=== PATIENT | female | born 1970 | race Caucasian/White ===

== ENCOUNTER 2017-02-06 23:31 | Inpatient (IN) | payer MEDICAID ==
[~2017-02-06] VITALS: Ht 154.9 cm; Wt 117.5 kg
[2017-02-06 23:35] VITALS: BP 181/124
[2017-02-07] MEDS ORDERED: methylPREDNISolone SS 125 MG in WATER STERILE 2 ML IM ONE ×2
--- NOTE | 2017-02-07 | NUR ---
Patient transferred to bed 4 for further care. RN evaluating patient at bedside.
--- NOTE | 2017-02-07 00:05 | NUR ---
Breathing treatment administered by respiratory therapist at bedside.
[2017-02-07] MEDS ORDERED: ALBUTEROL SULFATE/IPRATROPIU 3 ML SOL IH ONE ×2 (00:08)
[2017-02-07] MEDS ORDERED: MAG SULF 2000 MG/WATER PREMIX 50 ML IV ONE (00:20)
[2017-02-07] MEDS ORDERED: NACL 0.9% 1,000 ML IV ONE (00:20)
[2017-02-07 00:41] LABS: BASOPHILS # (AUTO) 0.3 K/uL (0.00-0.22); BASOPHILS % (AUTO) 2.9 % (0.0-2.0); EOSINOPHILS # (AUTO) 0.4 K/uL (0-0.4); EOSINOPHILS % (AUTO) 3.7 % (0.0-4.0); HEMOGLOBIN 12.9 g/dL (12.0-16.0); LYMPHOCYTES # (AUTO) 3.4 K/uL (2.5-16.5); LYMPHOCYTES % (AUTO) 33.7 % (20.5-51.1); MEAN CORPUSCULAR HEMOGLOBIN 27 pg (27-31); MEAN CORPUSCULAR HGB CONC 32 g/dL (33-37); MEAN CORPUSCULAR VOLUME 84 fL (80-94); MONOCYTES # (AUTO) 0.7 K/uL (0.8-1.0); MONOCYTES % (AUTO) 6.5 % (1.7-9.3); NEUTROPHILS # (AUTO) 5.3 K/uL (1.8-7.7); NEUTROPHILS % (AUTO) 53.2 % (42.2-75.2); PLATELET COUNT (AUTO) 238 K/uL (140-450); RED BLOOD CELL COUNT(AUTO) 4.78 MIL/uL (4.20-5.40); RED CELL DISTRIBUTION WIDTH 14.6 % (11.6-13.7); WHITE BLOOD COUNT (AUTO) 10.1 K/uL (4.8-10.8)
[2017-02-07 00:51] LABS: CARBON DIOXIDE 29.2 mmol/L (21-32); CREATININE 0.9 mg/dL (0.6-1.3); POTASSIUM 3.2 mmol/L (3.5-5.1)
--- NOTE | 2017-02-07 00:51 | NUR ---
47/F c/o difficulty breathing x2 weeks. Pt has hx of asthma and ran out of medications. Pt noted with wheezing and diminished breath sounds. Pt also c/o congestion and cough for the past two weeks as well. AOX4, placed in a gown, placed on cardiac exercise physiologist, pulse oximetry and blood pressure monitoring.
--- NOTE | 2017-02-07 01:54 | NUR ---
RT at bedside for ABG draw.
--- NOTE | 2017-02-07 02:16 | NUR ---
Patient will be admitted to care of Dr. Holguin. Admited to TELE. Will go to room 119-A. Belongings list completed. Report to Meri TIPTON.
--- NOTE | 2017-02-07 02:30 | NUR ---
RECEIVED REPORT FROM LUBA STANTON NURSE . PT TO BE ON TELE MONITOR.
[2017-02-07 02:50] VITALS: BP 150/87
--- NOTE | 2017-02-07 02:50 | NUR ---
ADMITTED A 47F FROM ER. CAME BY OTF . ABLE AMBULATE FROM [facility] TO BED. AWAKE,ALERT AND ORIENTED X4. ON TELE MONITOR-SR. CAME DUE TO SOB SECONDARY TO ASTHMA EXACERBATION. THIS TIME PT NO SOB NOTED. BUT WITH OCCASIONAL PRODUCTIVE COUGH . SKIN INTACT. DENIES AND PAIN . ORIENTED TO HOSPITAL ROUTINES. CALL LIGHT PLACED WITHIN EASY REACH. HAS HL ON THE RT AC#20. PLACED COMFORTABLY IN BED. WILL CONTINUE TO MONITOR.
[2017-02-07] MEDS ORDERED: POTASSIUM CHLORIDE 10 MEQ TABER PO ONE (03:50)
[2017-02-07] MEDS: NACL 0.9% 500 ML IV SCH ×2 (04:18→08:42)
--- NOTE | 2017-02-07 04:20 | NUR ---
K LEVEL - 3.2, MEDICATED WITH K DUR 40 MEQ PO.
--- NOTE | 2017-02-07 04:30 | NUR ---
CHECKED IN ON PT. PT RESTING COMFORTABLY IN BED WITH NO S/S OF DISTRESS NOTED. ALL SAFETY PRECAUTIONS MET, CALL LIGHT WITHIN REACH, WILL CONTINUE TO MONITOR.
--- NOTE | 2017-02-07 04:30 | NUR ---
SLEEPING COMFORTABLY IN BED.
[2017-02-07 04:45] VITALS: BP 148/79
[2017-02-07 05:57] LABS: BASOPHILS # (AUTO) 0.1 K/uL (0.00-0.22); BASOPHILS % (AUTO) 1.5 % (0.0-2.0); EOSINOPHILS # (AUTO) 0.1 K/uL (0-0.4); HEMATOCRIT 38.4 % (36-48); HEMOGLOBIN 12.4 g/dL (12.0-16.0); LYMPHOCYTES # (AUTO) 0.7 K/uL (2.5-16.5); LYMPHOCYTES % (AUTO) 7.4 % (20.5-51.1); MEAN CORPUSCULAR HEMOGLOBIN 27 pg (27-31); MEAN CORPUSCULAR HGB CONC 32 g/dL (33-37); MEAN CORPUSCULAR VOLUME 84 fL (80-94); MONOCYTES # (AUTO) 0.2 K/uL (0.8-1.0); MONOCYTES % (AUTO) 2.3 % (1.7-9.3); NEUTROPHILS # (AUTO) 8.5 K/uL (1.8-7.7); NEUTROPHILS % (AUTO) 87.8 % (42.2-75.2); PLATELET COUNT (AUTO) 238 K/uL (140-450); RED BLOOD CELL COUNT(AUTO) 4.59 MIL/uL (4.20-5.40); RED CELL DISTRIBUTION WIDTH 14.4 % (11.6-13.7); WHITE BLOOD COUNT (AUTO) 9.6 K/uL (4.8-10.8)
[2017-02-07 06:45] LABS: ANION GAP 16.2 (8-16); CARBON DIOXIDE 23.4 mmol/L (21-32); POTASSIUM 3.6 mmol/L (3.5-5.1)
[2017-02-07 06:52] LABS: MAGNESIUM 2.1 mg/dL (1.8-2.4); PHOSPHORUS 2.4 mg/dL (2.5-4.9)
--- NOTE | 2017-02-07 07:20 | NUR ---
RECEIVED REPORT FROM NIGHT RN AT PT BEDSIDE. PT AMBULATORY TO BATHROOM, NO S/S OF ACUTE DISTRESS NOTED. ON ROOM AIR NO S/S OF RESPIRATORY DISTRESS. DENIES PAIN. DENIES N/V. IV SITE PATENT AND INTACT, NS @ 120 INFUSING. BED IN LOWEST POSITION. CALL LIGHT WITHIN REACH. ALERT AND ORIENTED, FOLLOWS COMMANDS.
[2017-02-07 08:00] VITALS: BP 192/96
--- NOTE | 2017-02-07 08:13 | NUR ---
PATIENT SEEN BY DR. SEYMOUR AT BEDSIDE, NO NEW ORDERS. PATIENT BP ELEVATED 192/96, DR. LUNA MADE AWARE, WILL CONTINUE TO MONITOR, NO NEW ORDERS.
[2017-02-07] MEDS: methylPREDNISolone SS 125 MG/2 ML VIAL IVP SCH ×3 (08:42→22:06)
[2017-02-07] MEDS: LORATADINE 10 MG TAB PO SCH (08:43)
[2017-02-07] MEDS: MONTELUKAST SODIUM 10 MG TAB PO SCH (08:43)
--- NOTE | 2017-02-07 08:46 | NUR ---
PATIENT HAS BEEN SCREENED AND CATEGORIZED HIGH NUTRITION RISK. PATIENT WILL BE SEEN WITHIN 1-2 DAYS OF ADMISSION. 02/07/17-02/08/[address]
[2017-02-07] MEDS: ALBUTEROL SULFATE/IPRATROPIU 3 ML SOL IH SCH ×5 (10:00→22:24)
[2017-02-07] MEDS: NACL 0.9% 1,000 ML IV SCH (10:42)
[2017-02-07] MEDS ORDERED: SODIUM PHOS / POTASSIUM PHOS 1 PKT PDR PO SCH (10:45)
[2017-02-07] MEDS ORDERED: DEXTROSE 50% 50 ML SYR IVP PRN (10:45)
[2017-02-07 12:00] VITALS: BP 156/96
--- NOTE | 2017-02-07 12:00 | NUR ---
PATIENT RESTING IN BED. NO S/S OF ACUTE DISTRESS. DENIES DISCOMFORT. AMBULATORY.
[2017-02-07] MEDS: BLOOD GLUCOSE MONITORING 1 DEV DEV FS SCH ×3 (12:09→21:00)
[2017-02-07] MEDS: INSULIN LISPRO SLIDING SCALE 100 UNITS/ML VIAL SUBQ PRN ×3 (12:31→22:34)
--- NOTE | 2017-02-07 12:46 | NUR ---
02/07/17 RD INITIAL ASSESSMENT COMPLETED PLEASE REFER TO NUTRITION ASSESSMENT UNDER CARE ACTIVITY FOR ESTIMATED NUTRITIONAL NEEDS. 1. CONTINUE 60G CONSISTENT CARBOHYDRATE DIET 2. PROVIDE NUTRITION THERAPY EDUCATION NEEDED 3. RD TO FOLLOW-UP 3-5 DAYS, MODERATE RISK ULISES GUERRA RD
--- NOTE | 2017-02-07 14:30 | NUR ---
PT C/O HEADACHE WILL MEDICATE ORDERED.
--- NOTE | 2017-02-07 15:00 | NUR ---
PATIENT PLACED ON SCDS. AMBULATORY. NO S/S OF ACUTE DISTRESS.
[2017-02-07 16:00] VITALS: BP 139/63
[2017-02-07] MEDS ORDERED: ACETAMINOPHEN 325 MG TAB PO PRN (17:15)
--- NOTE | 2017-02-07 19:15 | NUR ---
ENDORSED PLAN OF CARE TO NIGHT RN AT PT BEDSIDE. NO S/S OF ACUTE DISTRESS NOTED.
--- NOTE | 2017-02-07 19:18 | NUR ---
RECEIVED HANDOFF REPORT FROM AM RN. PATIENT A&OX4. IV SITE PATENT AND INTACT. PATIENT DENIES PAIN. NO SIGNS AND SYMPTOMS OF ACUTE DISTRESS NOTED. CALL LIGHT WITHIN REACH. WILL CONTINUE TO MONITOR.
[2017-02-07 20:00] VITALS: BP 151/53
--- NOTE | 2017-02-07 22:06 | NUR ---
PM MEDS GIVEN WITH EDUCATION. PT VERBALIZED UNDERSTANDING. CALL LIGHT WITHIN REACH. WILL CONTINUE TO MONITOR.
--- NOTE | 2017-02-07 22:38 | NUR ---
PATIENT STATED NOT TO WAKE HER UP FOR HER 0300 HHN TREATMENT
--- NOTE | 2017-02-07 23:10 | NUR ---
PT STATES SHE IS HAVING SHARP NONRADIATING CHEST PAIN. HR ELEVATED TO 137. PT STATES SHE FEELS ANXIOUS. BP 195/101 HR 123. PT GIVEN SIPS OF WATER. PT STATES CHEST PAIN IS GONE. DR. RENDON MADE AWARE. WILL CONTINUE TO MONITOR.
[2017-02-08] VITALS: BP 170/89
--- NOTE | 2017-02-08 02:41 | NUR ---
PATIENT AWAKE IN BED. PATIENT DENIES PAIN. NO SIGNS AND SYMPTOMS OF ACUTE DISTRESS NOTED. CALL LIGHT WITHIN REACH. WILL CONTINUE TO MONITOR.
[2017-02-08] MEDS: ALBUTEROL SULFATE/IPRATROPIU 3 ML SOL IH SCH ×3 (03:00→11:00)
--- NOTE | 2017-02-08 03:09 | NUR ---
HHN TREATMENT NOT GIVEN, PER PATIENTS REQUEST EARLIER NOT TO WAKE HER UP WHILE SHE IS SLEEPING
[2017-02-08] MEDS: NACL 0.9% 1,000 ML IV SCH ×2 (03:15→06:39)
[2017-02-08 04:00] VITALS: BP 153/91
--- NOTE | 2017-02-08 05:13 | NUR ---
PATIENT SLEEPING. NO SIGNS OR SYMPTOMS OF ACUTE DISTRESS NOTED. CALL LIGHT WITHIN REACH. WILL CONTINUE TO MONITOR.
[2017-02-08 06:19] LABS: BASOPHILS # (AUTO) 0.1 K/uL (0.00-0.22); BASOPHILS % (AUTO) 0.8 % (0.0-2.0); EOSINOPHILS # (AUTO) 0.2 K/uL (0-0.4); EOSINOPHILS % (AUTO) 1.3 % (0.0-4.0); HEMATOCRIT 35.7 % (36-48); HEMOGLOBIN 11.9 g/dL (12.0-16.0); LYMPHOCYTES # (AUTO) 0.8 K/uL (2.5-16.5); LYMPHOCYTES % (AUTO) 4.9 % (20.5-51.1); MEAN CORPUSCULAR HEMOGLOBIN 28 pg (27-31); MEAN CORPUSCULAR HGB CONC 34 g/dL (33-37); MEAN CORPUSCULAR VOLUME 82 fL (80-94); MONOCYTES # (AUTO) 0.5 K/uL (0.8-1.0); MONOCYTES % (AUTO) 2.8 % (1.7-9.3); NEUTROPHILS # (AUTO) 15.6 K/uL (1.8-7.7); NEUTROPHILS % (AUTO) 90.2 % (42.2-75.2); PLATELET COUNT (AUTO) 239 K/uL (140-450); RED BLOOD CELL COUNT(AUTO) 4.35 MIL/uL (4.20-5.40); RED CELL DISTRIBUTION WIDTH 14.4 % (11.6-13.7)
[2017-02-08] MEDS: INSULIN LISPRO SLIDING SCALE 100 UNITS/ML VIAL SUBQ PRN ×2 (06:29→11:29)
[2017-02-08 06:42] LABS: ALBUMIN 3.5 g/dL (3.4-5.0); ANION GAP 14.9 (8-16); CREATININE 0.9 mg/dL (0.6-1.3); POTASSIUM 3.9 mmol/L (3.5-5.1); TOTAL BILIRUBIN 0.2 mg/dL (0.0-1.0)
--- NOTE | 2017-02-08 07:13 | NUR ---
ENDORSED PLAN OF CARE TO AM RN. PATIENT IN STABLE CONDITION.
[2017-02-08 07:23] LABS: PHOSPHORUS 2.8 mg/dL (2.5-4.9)
[2017-02-08 07:29] LABS: WHITE BLOOD COUNT (AUTO) 17.2 K/uL (4.8-10.8)
--- NOTE | 2017-02-08 07:29 | NUR ---
RECEIVED PT IN BED. AWAKE. ALERT ORIENTEDX4. NO SOB NOTED. DENIES ANY PAIN OR DISCOMFORT ATT HIS TIME. POSITIVE BOWEL SOUNDS NOTED. SAFETY PRECAUTION IN PLACE. CALL LIGHT WITHIN REACH.
[2017-02-08] MEDS: BLOOD GLUCOSE MONITORING 1 DEV DEV FS SCH ×2 (07:30→11:30)
[2017-02-08 08:00] VITALS: BP 148/86
[2017-02-08] MEDS: MONTELUKAST SODIUM 10 MG TAB PO SCH (08:51)
[2017-02-08] MEDS: LORATADINE 10 MG TAB PO SCH (08:51)
[2017-02-08] MEDS ORDERED: LISINOPRIL 10 MG TAB PO SCH (09:00)
[2017-02-08] MEDS ORDERED: methylPREDNISolone SS 40 MG/ML VIAL IVP SCH (09:00)
[2017-02-08] MEDS ORDERED: ZOLPIDEM 5 MG TAB PO PRN (09:00)
--- NOTE | 2017-02-08 11:19 | NUR ---
PT REFUSED BREATHING TX. EXPLAINED TO PT BENEFITS AND INDICATION PT STILL REFUSED. FAMILY IS BEDSIDE AT THIS TIME. PT IS NOT SOB AND NOT IN RESPIRATORY DISTRESS. WILL CONTINUE TO MONITOR.
[2017-02-08] MEDS ORDERED: LORA10TA19 PO (11:29)
[2017-02-08] MEDS ORDERED: MONT10TA35 PO (11:29)
[2017-02-08] MEDS ORDERED: METH4TAB1 PO (11:29)
[2017-02-08] MEDS ORDERED: LISI10TA11 PO (11:29)
[2017-02-08] MEDS ORDERED: ALBU0.0912 IH (11:29)
[2017-02-08] MEDS ORDERED: METF500T PO (11:32)
[2017-02-08 11:50] VITALS: BP 154/86
--- NOTE | 2017-02-08 12:23 | NUR ---
DISCHARGE INSTRUCTION AND HEALTH TEACHINGS PROVIDED AND EXPLAINED TO PT. PT WITH JAYLEEN BANKS, PT AND JAYLEEN BANKS VERBALIZED UNDERSTANDING. REMINDED TO FOLLOW UP WITH DR. BELLO WRITTEN ON THE DISCHARGE PAPERS. PT SIGNED DISCHARGE PAPERS. IV CANNULA REMOVED AND INTACT. NAME ARMBAND REMOVED, TELEBOX REMOVED. NO SOB NOTED. DENIES ANY PAIN OR DISCOMFORT AT THIS TIME.
--- NOTE | 2017-02-08 12:30 | NUR ---
PT FINISHED EATING HER LUNCH, WAS ABLE TO HAVE BOWEL MOVEMENT. PT WHEELED GOING OUT OF THE HOSPITAL TO THE HOSPITAL PARKING LOT, WITH SON DARREN, ASSISTED BY RESIDENTIAL ROOFER TO THEIR PRIVATE OWNED VEHICLE. NO SOB NOTED. DENIES ANY PAIN OR DISCOMFORT AT THIS TIME. PT DISCHARGE ON STABLE CONDITION. REMINDED TO GO TO SCHEDULED APPOINTMENT WITH DR. BELLO ON , PT VERBALIZED UNDERSTANDING.
== END 2017-02-08 12:30 | disposition home or self-care (01) | DRG 141 ==
LOC: MED 23:31 → MTU 02-07 00:57
PROVIDERS: ADMIT Family Medicine; ATTEND Family Medicine
DX: J45.901 Unspecified asthma with (acute) exacerbation (principal); D68.59 Other primary thrombophilia; Z68.42 Body mass index [BMI] 45.0-49.9, adult; E83.39 Other disorders of phosphorus metabolism; E66.01 Morbid (severe) obesity due to excess calories; I10 Essential (primary) hypertension; E87.6 Hypokalemia; E11.9 Type 2 diabetes mellitus without complications; Z91.14 Patient's other noncompliance with medication regimen; D72.829 Elevated white blood cell count, unspecified; T38.0X5A Adverse effect of glucocorticoids and synthetic analogues, initial encounter; Y92.89 Other specified places as the place of occurrence of the external cause; Z79.84 Long term (current) use of oral hypoglycemic drugs
CPT/HCPCS: 36415; 36600; 71010; 80048; 80053; 82803; 82948; 83036; 83735; 84100; 85025; 87081; 93005; 93925; 93970; 94640; 96361; 96365; 96372; 99285; J1815; J2920; J2930; J3475; J7030; J7620; Q0092

== ENCOUNTER 2017-05-09 10:16 | Emergency (ER) | payer MEDICAID ==
[~2017-05-09] VITALS: Ht 165.1 cm; Wt 104.3 kg
[~2017-05-09 10:16] MED LIST: ALBU0.0912 IH; LISI10TA11 PO; LORA10TA19 PO; METF500T PO; METH4TAB1 PO; MONT10TA35 PO
[2017-05-09 10:29] VITALS: BP 142/80
--- NOTE | 2017-05-09 10:30 | NUR ---
Patient to bed 03.
[2017-05-09] MEDS ORDERED: predniSONE 20 MG TAB PO ONE (11:00)
[2017-05-09] MEDS ORDERED: ALBUTEROL 0.083% 2.5 MG/3 ML NEBU INH ONE ×2 (11:00→11:30)
[2017-05-09] MEDS ORDERED: ALBUTEROL SULFATE/IPRATROPIU 3 ML SOL IH ONE ×2 (11:00→11:30)
--- NOTE | 2017-05-09 11:08 | NUR ---
Respiratory Therapist at bedside for respiratory intervention.
--- NOTE | 2017-05-09 11:26 | NUR ---
Dr. Sanders evaluating patient at bedside.
--- NOTE | 2017-05-09 11:32 | NUR ---
RT at bedside for a second breathing treatment.
--- NOTE | 2017-05-09 11:43 | NUR ---
PATIENT PRESENTS TO ED WITH sob productive cough . PT STATES . DENIES N/V/D; SKIN IS PINK/WARM/DRY; AAOX4 WITH EVEN AND STEADY GAIT; wheezing/rhonchi to upper lobes; HR EVEN AND REGULAR;PATIENT STATES PAIN OF 0/10 AT THIS TIME; VSS; PATIENT POSITIONED FOR COMFORT; HOB ELEVATED; BEDRAILS UP X2; BED DOWN. ER MD MADE AWARE OF PT STATUS.
--- NOTE | 2017-05-09 12:01 | NUR ---
Patient discharged with v/s stable. Written and verbal after care instructions given and explained. Patient alert, oriented and verbalized understanding of instructions. Ambulatory with steady gait. All questions addressed prior to discharge. ID band removed. Patient advised to follow up with PMD. Rx of albuterol/prednisone/motrin given. Patient educated on indication of medication including possible reaction and side effects. Opportunity to ask questions provided and answered.
--- NOTE | 2017-05-09 12:01 | NUR ---
pt admits breathing easier---denies cp, denies west at this time---okay for dc---
[2017-05-09 12:02] VITALS: BP 133/92
== END 2017-05-09 12:01 | disposition home or self-care (01) ==
LOC: MED 10:16
DX: J45.901 Unspecified asthma with (acute) exacerbation (principal); E11.9 Type 2 diabetes mellitus without complications; I10 Essential (primary) hypertension
CPT/HCPCS: 94640; 99284; J7512; J7613; J7620

== ENCOUNTER 2017-05-28 10:28 | Inpatient (IN) | payer MEDICAID ==
[~2017-05-28] VITALS: Ht 165.1 cm; Wt 105.7 kg
[2017-05-28 10:31] VITALS: BP 120/66
--- NOTE | 2017-05-28 10:38 | NUR ---
PT TAKEN TO BED 2.
--- NOTE | 2017-05-28 10:40 | NUR ---
47/F c/o sob with productive cough and throat pain x 3 day progressively getting worse.hx--asthma, htn.SKIN IS PINK/WARM/DRY; AAOX4 WITH EVEN AND STEADY GAIT; LUNGS wheezing BL; PATIENT STATES PAIN OF 9/10 AT THIS TIME; PATIENT POSITIONED FOR COMFORT; HOB ELEVATED; BEDRAILS UP X2; BED DOWN. ER MD MADE AWARE OF PT STATUS.
--- NOTE | 2017-05-28 11:11 | NUR ---
Patient being evaluated by DR ANGEL at bedside.
[2017-05-28] MEDS ORDERED: ALBUTEROL SULFATE/IPRATROPIU 3 ML SOL IH ONE ×3 (11:20→12:50)
--- NOTE | 2017-05-28 11:34 | NUR ---
Respiratory therapist at bedside for respiratory intervention.
--- NOTE | 2017-05-28 11:35 | NUR ---
rt at bedside for breathing treatment.
[2017-05-28] MEDS ORDERED: methylPREDNISolone SS 125 MG in WATER STERILE 2 ML IM ONE (12:05)
--- NOTE | 2017-05-28 12:17 | NUR ---
rt at bedside for 2nd breathing treatment.
--- NOTE | 2017-05-28 12:30 | NUR ---
PATIENT ADMITTED FROM ER WITH ASTHMA EXACERBATION. PATIENT AMBULATORY. ON O2 3L NC. WHEEZES HEARD BILATERALLY. ALERT AND ORIENTED. IV SITE PATENT AND INTACT. DENIES CHEST PAIN. NO S/S OF ACUTE RESPIRATORY DISTRESS AT THIS TIME. CALL LIGHT WITHIN REACH.
[2017-05-28] MEDS ORDERED: NACL 0.9% 1,000 ML IV ONE (12:50)
[2017-05-28] MEDS ORDERED: MAG SULF 2000 MG/WATER PREMIX 50 ML IV ONE (12:50)
--- NOTE | 2017-05-28 12:59 | NUR ---
CXR AT BEDSIDE.
[2017-05-28 13:38] LABS: BASOPHILS # (AUTO) 0.3 K/uL (0.00-0.22); BASOPHILS % (AUTO) 2.3 % (0.0-2.0); EOSINOPHILS # (AUTO) 0.1 K/uL (0-0.4); EOSINOPHILS % (AUTO) 0.9 % (0.0-4.0); HEMATOCRIT 35.3 % (36-48); HEMOGLOBIN 11.7 g/dL (12.0-16.0); LYMPHOCYTES # (AUTO) 2.1 K/uL (2.5-16.5); LYMPHOCYTES % (AUTO) 14.5 % (20.5-51.1); MEAN CORPUSCULAR HEMOGLOBIN 27 pg (27-31); MEAN CORPUSCULAR HGB CONC 33 g/dL (33-37); MEAN CORPUSCULAR VOLUME 82 fL (80-94); MONOCYTES # (AUTO) 1.2 K/uL (0.8-1.0); MONOCYTES % (AUTO) 8.2 % (1.7-9.3); NEUTROPHILS # (AUTO) 10.8 K/uL (1.8-7.7); NEUTROPHILS % (AUTO) 74.1 % (42.2-75.2); PLATELET COUNT (AUTO) 196 K/uL (140-450); RED BLOOD CELL COUNT(AUTO) 4.34 MIL/uL (4.20-5.40)
[2017-05-28] MEDS ORDERED: ALBUTEROL SULFATE/IPRATROPIU 3 ML SOL IH PRN (13:45)
[2017-05-28 13:53] LABS: WHITE BLOOD COUNT (AUTO) 14.5 K/uL (4.8-10.8)
[2017-05-28] MEDS ORDERED: ONDANSETRON 4 MG/2 ML VIAL IVP PRN (13:55)
[2017-05-28] MEDS ORDERED: ACETAMINOPHEN 325 MG TAB PO PRN (13:55)
[2017-05-28] MEDS ORDERED: HYDROcodone/APAP 7.5/325 MG 1 TAB PO PRN (13:55)
[2017-05-28] MEDS ORDERED: DEXTROSE 50% 50 ML SYR IVP PRN ×2 (13:55→16:30)
[2017-05-28 13:57] LABS: PROTHROMBIN TIME 10.2 secs (10.8-13.4)
[2017-05-28 14:00] LABS: ANION GAP 11.7 (8-16); CARBON DIOXIDE 27.6 mmol/L (21-32); CREATININE 0.8 mg/dL (0.6-1.3); POTASSIUM 3.3 mmol/L (3.5-5.1); TOTAL BILIRUBIN 0.3 mg/dL (0.0-1.0)
[2017-05-28] MEDS ORDERED: ALBUTEROL HFA MDI 90 MCG/ACTUATION 8 GM INH PRN (14:00)
--- NOTE | 2017-05-28 14:29 | NUR ---
Patient will be admitted to care of DR CELIS. Admited to MED. Will go to [id number]. Belongings list completed. Report Marko KIM.
[2017-05-28 14:45] VITALS: BP 151/83
[2017-05-28] MEDS ORDERED: INFLUENZA VIRUS VACCINE QUAD 0.5 ML SYR IMVAC SCH (15:10)
--- NOTE | 2017-05-28 15:18 | NUR ---
AWAKE AND ALERT PATIENT C/O SOB AND NASAL DRYNESS WITH SUPPLEMENTAL OXYGEN USE ASSESSMENT DONE HHN PRN THERAPY GIVEN AT THIS TIME ENCOURAGED PATIENT FOR DEEP BREATHING AND COUGH DURING THERAPY EDUCATION PROVIDED TO PATIENT WITH ACKNOWLEDGEMENT ON SPUTUM CULTURE COLLECTION SPECIMEN CUP GIVEN TO PATIENT POST HHN PRN THERAPY ADDED HUMIDIFIER TECH AT BEDSIDE FOR DVT PROCEDURE CAD DRAFTER TO ATTEMPT INCENTIVE SPIROMETRY THERAPY AT A LATER TIME PRATIK/RN NOTIFIED Addendum: 05/28/17 at 1651 by Saleem Boo RT VALUE ANALYST AT BEDSIDE FOR DVT
--- NOTE | 2017-05-28 15:35 | NUR ---
US AT BEDSIDE
[2017-05-28] MEDS: NACL 0.9% 1,000 ML IV SCH (15:37)
[2017-05-28 16:00] VITALS: BP 147/88
[2017-05-28] MEDS ORDERED: POTASSIUM CHLORIDE 10 MEQ TABER PO SCH (16:00)
[2017-05-28] MEDS: BLOOD GLUCOSE MONITORING 1 DEV DEV FS SCH ×4 (16:30→21:45)
[2017-05-28] MEDS: metFORMIN 500 MG TAB PO SCH (16:40)
[2017-05-28] MEDS: INSULIN LISPRO SLIDING SCALE 100 UNITS/ML VIAL SUBQ PRN ×2 (16:42→22:05)
--- NOTE | 2017-05-28 16:45 | NUR ---
TOLERATED INCENTIVE SPIROMETRY THERAPY WELL WITHOUT ADVERSE REACTIONS NOTED ENCOURAGED PATIENT WITH ACKNOWLEDGEMENT TO USE EVERY 1-2 HOURS WHILE AWAKE
--- NOTE | 2017-05-28 16:49 | NUR ---
PATIENT TOLERATED LUNCH AT BEDSIDE. NO S/S OF ACUTE RESPIRATORY DISTRESS NOTED. ON O2 NC. DENIES PAIN.
[2017-05-28] MEDS ORDERED: AZITHROMYCIN 250 MG TAB PO SCH (17:00)
[2017-05-28 17:08] LABS: CHOL/HDL RATIO 3.1 (1-4.5); FREE T4 (FREE THYROXINE) 0.76 ng/dL (0.76-1.46); MAGNESIUM 1.8 mg/dL (1.8-2.4); PHOSPHORUS 2.5 mg/dL (2.5-4.9); THYROID STIMULATING HORMONE 1.66 uIU/mL (0.34-3.74)
[2017-05-28] MEDS: ALBUTEROL SULFATE/IPRATROPIU 3 ML SOL IH SCH (19:09)
--- NOTE | 2017-05-28 19:35 | NUR ---
SBAR REPORT GIVEN TO DANUTA MENA AT PT BEDSIDE. PATIENT RECEIVING BREATHING TREATMENT AT BEDSIDE, NO S/S OF ACUTE DISTRESS.
--- NOTE | 2017-05-28 19:36 | NUR ---
RECEIVED REPORT AT BEDSIDE FROM DAY SHIFT RN. PT A/OX4 ON 3L O2 VIA NASAL CANNULA. PT HAS A 20G IV TO RIGHT HAND, INFUSING NS@50ML/HR. SKIN INTACT. MONTANO CATHETER IN PLACE WITH DARK URINE AND PINK/RED SEDIMENTS. SAFETY PRECAUTIONS IN PLACE. UPDATED BOARD. VITAL SIGNS WITHIN NORMAL LIMITS. PT IN STABLE CONDITION, NO SIGNS OF DISTRESS NOTED. BED IN LOW POSITION, CALL LIGHT WITHIN REACH. WILL CONTINUE TO MONITOR.
[2017-05-28] MEDS: DOCUSATE SODIUM 100 MG GELCAP PO SCH (20:45)
[2017-05-28] MEDS: methylPREDNISolone SS 125 MG/2 ML VIAL IVP SCH (20:45)
[2017-05-28 21:09] VITALS: BP 156/98
[2017-05-29] VITALS: BP 131/94
--- NOTE | 2017-05-29 00:10 | NUR ---
VITAL SIGNS WITHIN NORMAL LIMITS. PT IN STABLE CONDITION, NO SIGNS OF DISTRESS NOTED. BED IN LOW POSITION, CALL LIGHT WITHIN REACH. WILL CONTINUE TO MONITOR.
[2017-05-29 03:17] LABS: APPEARANCE,URINE CLEAR (CLEAR); BILIRUBIN,URINE NEGATIVE (NEGATIVE); BLOOD, URINE TRACE-L (NEGATIVE); COLOR,URINE YELLOW (YELLOW); LEUKOCYTE ESTERASE ,URINE NEGATIVE (NEGATIVE); NITRITE, URINE NEGATIVE (NEGATIVE); UGLUCOSE 2+ (NEGATIVE)
[2017-05-29 03:23] LABS: BARBITURATE, URINE NEG. ng/ml (NEG <=200); BENZODIAZEPINE, URINE NEG. ng/mL (NEG <=200); CANNABINOID, URINE NEG. ng/mL (NEG <=50); COCAINE, URINE NEG. ng/mL (NEG <=300); OPIATE, URINE NEG. ng/mL (NEG <=2000); PHENCYCLIDINE SCREEN,URINE NEG. ng/mL (NEG <=25)
[2017-05-29 04:00] VITALS: BP 137/85
[2017-05-29] MEDS: methylPREDNISolone SS 125 MG/2 ML VIAL IVP SCH ×2 (04:17→13:00)
--- NOTE | 2017-05-29 04:25 | NUR ---
VITAL SIGNS WITHIN NORMAL LIMITS. PT IN STABLE CONDITION, NO SIGNS OF DISTRESS NOTED. BED IN LOW POSITION, CALL LIGHT WITHIN REACH. WILL CONTINUE TO MONITOR.
[2017-05-29 04:26] LABS: RBC,URINE NONE SEEN /HPF (0-5); WBC,URINE 0-5 (RARE) /HPF (0-5)
[2017-05-29] MEDS: BLOOD GLUCOSE MONITORING 1 DEV DEV FS SCH ×8 (06:32→21:05)
[2017-05-29] MEDS: INSULIN LISPRO SLIDING SCALE 100 UNITS/ML VIAL SUBQ PRN ×4 (06:34→21:05)
[2017-05-29] MEDS: ALBUTEROL SULFATE/IPRATROPIU 3 ML SOL IH SCH ×3 (07:00→19:16)
--- NOTE | 2017-05-29 07:33 | NUR ---
RECIEVED PT FROM SAIL REPAIR PERSON NURSE. PT STABLE. PT RESTING IN HER BED WITH HER EYES CLOSED.
--- NOTE | 2017-05-29 07:33 | NUR ---
ENDORSED PT IN STABLE CONDITION TO DAY SHIFT RN FOR CONTINUITY OF CARE.
[2017-05-29 07:47] LABS: ANION GAP 10.7 (8-16); CARBON DIOXIDE 25.8 mmol/L (21-32); CREATININE 0.7 mg/dL (0.6-1.3); POTASSIUM 4.5 mmol/L (3.5-5.1)
[2017-05-29 07:55] LABS: BASOPHILS # (AUTO) 0.1 K/uL (0.00-0.22); BASOPHILS % (AUTO) 0.4 % (0.0-2.0); EOSINOPHILS # (AUTO) 0.1 K/uL (0-0.4); EOSINOPHILS % (AUTO) 0.6 % (0.0-4.0); HEMATOCRIT 35.2 % (36-48); HEMOGLOBIN 11.9 g/dL (12.0-16.0); LYMPHOCYTES # (AUTO) 1.1 K/uL (2.5-16.5); LYMPHOCYTES % (AUTO) 6.5 % (20.5-51.1); MAGNESIUM 2.3 mg/dL (1.8-2.4); MEAN CORPUSCULAR HEMOGLOBIN 28 pg (27-31); MEAN CORPUSCULAR HGB CONC 34 g/dL (33-37); MEAN CORPUSCULAR VOLUME 83 fL (80-94); MONOCYTES # (AUTO) 0.5 K/uL (0.8-1.0); MONOCYTES % (AUTO) 3.1 % (1.7-9.3); NEUTROPHILS # (AUTO) 15.2 K/uL (1.8-7.7); NEUTROPHILS % (AUTO) 89.4 % (42.2-75.2); PHOSPHORUS 2.5 mg/dL (2.5-4.9); PLATELET COUNT (AUTO) 207 K/uL (140-450); RED BLOOD CELL COUNT(AUTO) 4.24 MIL/uL (4.20-5.40); RED CELL DISTRIBUTION WIDTH 14.4 % (11.6-13.7)
--- NOTE | 2017-05-29 08:00 | NUR ---
Patient's Plan of Care was discussed and reviewed with MASTER AUTOMOTIVE TECHNICIAN: ROSIBEL(REGISTRY)
[2017-05-29] MEDS ORDERED: methylPREDNISolone 4 MG TAB PO SCH (09:00)
[2017-05-29] MEDS: LACTOBACILLUS RHAMNOSUS GG 1 EACH CAP PO SCH (09:36)
[2017-05-29] MEDS: DOCUSATE SODIUM 100 MG GELCAP PO SCH ×2 (09:36→20:51)
[2017-05-29] MEDS: metFORMIN 500 MG TAB PO SCH ×2 (09:36→17:00)
[2017-05-29] MEDS: LORATADINE 10 MG TAB PO SCH (09:36)
[2017-05-29] MEDS: AZITHROMYCIN 250 MG TAB PO SCH (09:37)
[2017-05-29] MEDS: MONTELUKAST SODIUM 10 MG TAB PO SCH (09:37)
[2017-05-29] MEDS: LISINOPRIL 10 MG TAB PO SCH (09:37)
[2017-05-29] MEDS: NACL 0.9% 1,000 ML IV SCH (09:55)
--- NOTE | 2017-05-29 09:58 | NUR ---
PATIENT HAS BEEN SCREENED AND CATEGORIZED MODERATE NUTRITION RISK. PATIENT WILL BE SEEN WITHIN 3-5 DAYS OF ADMISSION. 05/30/17-06/01/[address]
--- NOTE | 2017-05-29 11:30 | NUR ---
b/s check done pt sitting in her bed with her eyes open. pt family at bed side.
[2017-05-29 12:00] VITALS: BP 153/89
--- NOTE | 2017-05-29 12:30 | NUR ---
PT EATTING. FAMILY AT BEDSIDE
--- NOTE | 2017-05-29 14:48 | NUR ---
pt family at bedside, pt denies pain
--- NOTE | 2017-05-29 15:57 | NUR ---
flu shot given pedro luis well. pt lying in her bed with her eyes open family at bedside. education given
[2017-05-29 18:00] VITALS: BP 175/95
--- NOTE | 2017-05-29 19:30 | NUR ---
RECEIVED REPORT AT THE BEDSIDE, PT IN STABLE CONDITION. NO S/S OF DISTRESS NOTED. PT IS AAOX4, ON ROOM AIR. IV TO R HAND 20G PATENT AND INTACT. RESPIRATIONS ARE EVEN AND UNLABORED. SKIN IS WARM AND DRY TO TOUCH. INITIAL ASSESSMENT COMPLETED. PLAN OF CARE DISCUSSED WITH PT, VERBALIZED UNDERSTANDING. ALL SAFETY PRECAUTIONS MET, CALL LIGHT WITHIN REACH, WILL CONTINUE TO MONITOR
[2017-05-29 20:00] VITALS: BP 136/77
[2017-05-29] MEDS: methylPREDNISolone SS 40 MG/ML VIAL IVP SCH (20:52)
[2017-05-30] VITALS: BP 148/72
[2017-05-30] MEDS: methylPREDNISolone SS 40 MG/ML VIAL IVP SCH ×2 (05:39→12:14)
[2017-05-30] MEDS: NACL 0.9% 1,000 ML IV SCH ×2 (05:55→13:35)
[2017-05-30] MEDS: BLOOD GLUCOSE MONITORING 1 DEV DEV FS SCH ×4 (06:34→11:30)
[2017-05-30] MEDS: INSULIN LISPRO SLIDING SCALE 100 UNITS/ML VIAL SUBQ PRN ×3 (06:35→12:48)
[2017-05-30 06:51] LABS: BASOPHILS # (AUTO) 0.1 K/uL (0.00-0.22); BASOPHILS % (AUTO) 0.4 % (0.0-2.0); EOSINOPHILS % (AUTO) 0.1 % (0.0-4.0); HEMATOCRIT 35.4 % (36-48); HEMOGLOBIN 11.8 g/dL (12.0-16.0); LYMPHOCYTES # (AUTO) 1.3 K/uL (2.5-16.5); LYMPHOCYTES % (AUTO) 6.3 % (20.5-51.1); MEAN CORPUSCULAR HEMOGLOBIN 28 pg (27-31); MEAN CORPUSCULAR HGB CONC 33 g/dL (33-37); MEAN CORPUSCULAR VOLUME 83 fL (80-94); MONOCYTES % (AUTO) 4.9 % (1.7-9.3); NEUTROPHILS # (AUTO) 18.9 K/uL (1.8-7.7); NEUTROPHILS % (AUTO) 88.3 % (42.2-75.2); PLATELET COUNT (AUTO) 228 K/uL (140-450); RED BLOOD CELL COUNT(AUTO) 4.28 MIL/uL (4.20-5.40); RED CELL DISTRIBUTION WIDTH 14.8 % (11.6-13.7)
[2017-05-30 07:01] LABS: ANION GAP 13.1 (8-16); CARBON DIOXIDE 25.1 mmol/L (21-32); CREATININE 0.9 mg/dL (0.6-1.3); POTASSIUM 4.2 mmol/L (3.5-5.1)
[2017-05-30] MEDS: metFORMIN 500 MG TAB PO SCH (07:31)
[2017-05-30] MEDS: ALBUTEROL SULFATE/IPRATROPIU 3 ML SOL IH SCH ×2 (07:57→13:20)
[2017-05-30 08:00] VITALS: BP 158/108
--- NOTE | 2017-05-30 08:00 | NUR ---
Patient's Plan of Care was discussed and reviewed with BAKERY MACHINE MECHANIC SUPERVISOR: ROSIBEL DALTON
[2017-05-30 08:04] LABS: WHITE BLOOD COUNT (AUTO) 21.3 K/uL (4.8-10.8)
[2017-05-30] MEDS: LORATADINE 10 MG TAB PO SCH (08:24)
[2017-05-30] MEDS: LACTOBACILLUS RHAMNOSUS GG 1 EACH CAP PO SCH (08:24)
[2017-05-30] MEDS: MONTELUKAST SODIUM 10 MG TAB PO SCH (08:24)
[2017-05-30] MEDS: DOCUSATE SODIUM 100 MG GELCAP PO SCH (08:24)
[2017-05-30] MEDS: LISINOPRIL 10 MG TAB PO SCH (08:27)
[2017-05-30] MEDS: AZITHROMYCIN 250 MG TAB PO SCH (08:29)
[2017-05-30] MEDS ORDERED: IPRA3AMP IH (14:01)
[2017-05-30] MEDS ORDERED: METH4TAB3 PO (14:01)
[2017-05-30] MEDS ORDERED: AZIT250T11 PO (14:01)
== END 2017-05-30 15:43 | disposition home or self-care (01) | DRG 133 ==
LOC: MED 10:28 → MTU 13:43
PROVIDERS: ADMIT Family Medicine Sports Medicine; ATTEND Family Medicine Sports Medicine
PROC: 3E0234Z Introduction of Serum, Toxoid and Vaccine into Muscle, Percutaneous Approach (ICD-10-PCS; principal; 2017-05-29)
DX: J96.01 Acute respiratory failure with hypoxia (principal); E44.0 Moderate protein-calorie malnutrition; E11.65 Type 2 diabetes mellitus with hyperglycemia; J45.901 Unspecified asthma with (acute) exacerbation; E03.9 Hypothyroidism, unspecified; I10 Essential (primary) hypertension; D72.829 Elevated white blood cell count, unspecified; E87.6 Hypokalemia; E66.9 Obesity, unspecified; D64.9 Anemia, unspecified; I70.209 Unspecified atherosclerosis of native arteries of extremities, unspecified extremity; Z68.38 Body mass index [BMI] 38.0-38.9, adult; T38.0X5A Adverse effect of glucocorticoids and synthetic analogues, initial encounter; Z79.899 Other long term (current) drug therapy; Z79.4 Long term (current) use of insulin; Z23 Encounter for immunization; Z91.14 Patient's other noncompliance with medication regimen; Y92.89 Other specified places as the place of occurrence of the external cause
CPT/HCPCS: 36415; 71010; 80048; 80053; 80305; 81001; 82150; 82948; 83036; 83605; 83690; 83735; 83880; 84100; 84439; 84443; 84484; 85025; 85610; 85730; 87040; 87070; 87081; 87086; 87205; 87804; 90658; 93005; 93970; 94640; 96372; 99285; J0696; J1815; J2920; J2930; J3475; J7030; J7060; J7509; J7620; Q0092

== ENCOUNTER 2018-03-10 17:17 | Emergency (ER) | payer MEDICAID ==
[~2018-03-10] VITALS: Ht 162.6 cm; Wt 93.0 kg
[~2018-03-10 17:17] MED LIST changes: +ALBU3SOL83 IH; +AZIT250T11 PO; -METH4TAB1 PO; +METH4TAB3 PO
--- NOTE | 2018-03-10 17:25 | NUR ---
PT AMBULATES TO BED 12
[2018-03-10 17:27] VITALS: BP 163/87
--- NOTE | 2018-03-10 17:31 | NUR ---
PT C/O COUGH, ASTHMA, HEADACHES AND FEVERS X 3 DAYS. VSS. NAD NOTED. HX: HTN, ASTHMA MEDS: NONE
--- NOTE | 2018-03-10 17:31 | NUR ---
IKE JONES RN
--- NOTE | 2018-03-10 17:35 | NUR ---
PT CAME INTO THE ED DUE TO C/O COUGH, ASTHMA, HEADACHES AND FEVERS X 3 DAYS. VSS. AFEBRILE AT THIS TIME. 6/10 HEADACHE THAT IS DULL AND NON RADIATING. DENIES N/V/D. ABLE TO SPEAK IN FULL AND COMPLETE SENTENCES. SYMETRICAL CHEST RISE. SAFETY PRECAUTIONS IMPLEMENTED. WILL CONTINUE TO MONITOR. ER MD MADE AWARE.
[2018-03-10] MEDS ORDERED: ALBUTEROL 0.083% 2.5 MG/3 ML NEBU INH ONE (18:25)
[2018-03-10] MEDS ORDERED: KETOROLAC 60 MG/2 ML VIAL IM ONE (18:25)
[2018-03-10] MEDS ORDERED: IPRATROPIUM 0.02% 0.5 MG/2.5 ML NEBU INH ONE (18:25)
[2018-03-10] MEDS ORDERED: predniSONE 20 MG TAB PO ONE (18:25)
--- NOTE | 2018-03-10 18:41 | NUR ---
RT AT BEDSIDE
--- NOTE | 2018-03-10 18:43 | NUR ---
RT AT BEDSIDE AT THIS TIME
--- NOTE | 2018-03-10 18:59 | NUR ---
INFLUENZA SPECIMEN COLLECTED. LAB NOTIFIED.
--- NOTE | 2018-03-10 19:14 | NUR ---
Pt report given to DANUTA MENA . Transfer of care at this time.
[2018-03-10 20:16] VITALS: BP 160/80
--- NOTE | 2018-03-10 20:16 | NUR ---
Patient discharged with v/s stable. Written and verbal after care instructions given and explained. Patient alert, oriented and verbalized understanding of instructions. Ambulatory with steady gait. All questions addressed prior to discharge. ID band removed. Patient advised to follow up with PMD. Rx of ALBUTEROL, PREDNSIONE, TESSALON PEARLES, NAPROSYN given. Patient educated on indication of medication including possible reaction and side effects. Opportunity to ask questions provided and answered.
== END 2018-03-10 20:16 | disposition home or self-care (01) ==
LOC: MED 17:17
DX: B34.9 Viral infection, unspecified (principal); J45.901 Unspecified asthma with (acute) exacerbation; E11.9 Type 2 diabetes mellitus without complications; I10 Essential (primary) hypertension; E03.9 Hypothyroidism, unspecified; Z79.2 Long term (current) use of antibiotics; Z79.899 Other long term (current) drug therapy
CPT/HCPCS: 36415; 71045; 87804; 94640; 96372; 99284; J1885; J7512; J7613; J7644; Q0092

== ENCOUNTER 2018-05-30 07:35 | Emergency (ER) | payer MEDICAID ==
[~2018-05-30] VITALS: Ht 165.1 cm; Wt 99.8 kg
[2018-05-30 07:35] VITALS: BP 177/82
[2018-05-30] MEDS ORDERED: ALBUTEROL 0.083% 2.5 MG/3 ML NEBU INH ONE ×2 (07:40→08:05)
[2018-05-30] MEDS ORDERED: IPRATROPIUM 0.02% 0.5 MG/2.5 ML NEBU INH ONE ×2 (07:40→08:05)
[2018-05-30] MEDS ORDERED: DEXAMETHASONE 10 MG/ML VIAL IM ONE (07:50)
[2018-05-30] MEDS ORDERED: KETOROLAC 60 MG/2 ML VIAL IM ONE (07:50)
[2018-05-30 09:09] VITALS: BP 154/74
== END 2018-05-30 09:08 | disposition home or self-care (01) ==
LOC: MED 07:35
DX: J45.901 Unspecified asthma with (acute) exacerbation (principal); R51 Headache; E11.9 Type 2 diabetes mellitus without complications; I10 Essential (primary) hypertension; E03.9 Hypothyroidism, unspecified; Z76.0 Encounter for issue of repeat prescription; Z79.84 Long term (current) use of oral hypoglycemic drugs; Z79.899 Other long term (current) drug therapy
CPT/HCPCS: 94640; 96372; 99284; J1100; J1885; J7613; J7644

== ENCOUNTER 2018-11-25 09:43 | Emergency (ER) | payer MEDICAID ==
[~2018-11-25] VITALS: Ht 167.6 cm; Wt 108.9 kg
[2018-11-25 09:49] VITALS: BP 189/103
--- NOTE | 2018-11-25 09:56 | NUR ---
PATIENT AMBULATED TO BED 6.
--- NOTE | 2018-11-25 10:10 | NUR ---
C/O R EAR & THROAT PAIN 10/10 & ACHING, AND DRY COUGH X3 DAYS. DENIES HEARING LOSS OUT OF THAT EAR, DENIES RINGING. DENIES N/V/D; SKIN IS PINK/WARM/DRY; AAOX4 WITH EVEN AND STEADY GAIT; LUNGS CLEAR BL; HR EVEN AND REGULAR; PT DENIES ANY FEVER, CP, SOB AT THIS TIME; PATIENT STATES PAIN OF 10/10 AT THIS TIME; VSS; ERYTHEMA IN RIGHT EAR AND EDEMA +2 ON AND ERYTHEMA RIGHT-SIDED THORAT NOTICED. PATIENT POSITIONED FOR COMFORT; HOB ELEVATED; BEDRAILS UP X1; BED DOWN. ER MD MADE AWARE OF PT STATUS.
[2018-11-25] MEDS ORDERED: CEPHALEXIN 500 MG CAP PO ONE (10:50)
[2018-11-25] MEDS ORDERED: HYDROcodone/APAP 5/325 MG 1 TAB TAB PO ONE (10:50)
--- NOTE | 2018-11-25 11:19 | NUR ---
Patient discharged with v/s stable. Written and verbal after care instructions given and explained. Patient alert, oriented and verbalized understanding of instructions. Ambulatory with steady gait. All questions addressed prior to discharge. ID band removed. Patient advised to follow up with PMD for her dionisio blood pressure and unconrolled diabetes. Rx of Carter and Keflex given. Patient educated on indication of medication including possible reaction and side effects. Opportunity to ask questions provided and answered.
[2018-11-25 11:20] VITALS: BP 172/83
== END 2018-11-25 11:19 | disposition home or self-care (01) ==
LOC: MED 09:43
DX: H66.91 Otitis media, unspecified, right ear (principal); E11.9 Type 2 diabetes mellitus without complications; I10 Essential (primary) hypertension; J45.909 Unspecified asthma, uncomplicated; E07.9 Disorder of thyroid, unspecified; Z79.84 Long term (current) use of oral hypoglycemic drugs; Z79.2 Long term (current) use of antibiotics; Z79.899 Other long term (current) drug therapy
CPT/HCPCS: 81002; 81025; 99283

== ENCOUNTER 2019-02-22 14:12 | Emergency (ER) | payer MEDICAID ==
[~2019-02-22] VITALS: Ht 160 cm; Wt 106.3 kg
[2019-02-22 14:16] VITALS: BP 183/97
[2019-02-22] MEDS ORDERED: ALBUTEROL SULFATE/IPRATROPIU 3 ML SOL IH ONE (14:25)
[2019-02-22] MEDS ORDERED: predniSONE 20 MG TAB PO ONE (14:25)
[2019-02-22] MEDS ORDERED: ALBUTEROL 0.083% 2.5 MG/3 ML NEBU INH ONE (14:25)
--- NOTE | 2019-02-22 14:37 | NUR ---
HHN THERAPY AND RESP[IRATORY DRUGS GIVEN ORDERED ENCOURAGED PATIENT FOR INTERMITTENT DEEP BREATHING AND COUGH DURING THERAPY PEAK FLOW METER: before 120 L after 220 L
--- NOTE | 2019-02-22 14:40 | NUR ---
RT AT BEDSIDE FOR TX.
--- NOTE | 2019-02-22 14:54 | NUR ---
PT TO ED FOR C/O COUGH/SOB. EXPIRATORY WHEEZES HEARD BILATERALLY. NO OBVIOUS DITRESS NOTED. PT PLACED INTO BED, RT AT BEDSIDE FOR BREATHING TX. WILL CONTINUE TO MILIOR.
--- NOTE | 2019-02-22 15:30 | NUR ---
PT REPORTS RELIEF OF SYMPTOMS S/P BREATHIN TX. LUNG SOUNDS IMPROVED.
--- NOTE | 2019-02-22 17:20 | NUR ---
NO NEW COMPLAINTS OR CONCERNS, PT SLEEPING IN BED.
[2019-02-22 17:56] VITALS: BP 151/88
--- NOTE | 2019-02-22 17:57 | NUR ---
Patient discharged with v/s stable. Written and verbal after care instructions given and explained. Patient alert, oriented and verbalized understanding of instructions. Ambulatory with steady gait. All questions addressed prior to discharge. ID band removed. Patient advised to follow up with PMD. Rx of ALBUTEROL, PREDNISONE, LEVOTHYROXZINE given. Patient educated on indication of medication including possible reaction and side effects. Opportunity to ask questions provided and answered.
== END 2019-02-22 17:56 | disposition home or self-care (01) ==
LOC: MED 14:12
DX: J45.901 Unspecified asthma with (acute) exacerbation (principal); I10 Essential (primary) hypertension; E11.9 Type 2 diabetes mellitus without complications; F07.9 Unspecified personality and behavioral disorder due to known physiological condition; Z79.84 Long term (current) use of oral hypoglycemic drugs; Z79.899 Other long term (current) drug therapy; Z86.39 Personal history of other endocrine, nutritional and metabolic disease
CPT/HCPCS: 94640; 99283; J7512; J7613; J7620

== ENCOUNTER 2020-07-31 14:36 | Emergency (ER) | payer MEDICAID ==
[~2020-07-31] VITALS: Ht 165.1 cm; Wt 99.8 kg
[~2020-07-31 14:36] MED LIST changes: -LISI10TA11 PO; +LISI10TA30 PO
[2020-07-31 14:45] VITALS: BP 176/100
[2020-07-31] MEDS ORDERED: NACL 0.9% 1,000 ML IV ONE (15:10)
[2020-07-31 15:23] LABS: BASOPHILS % (AUTO) 0.3 % (0.0-2.0); EOSINOPHILS # (AUTO) 0.1 K/uL (0-0.4); EOSINOPHILS % (AUTO) 1.5 % (0.0-4.0); HEMATOCRIT 40.6 % (36-48); HEMOGLOBIN 13.3 g/dL (12.0-16.0); LYMPHOCYTES # (AUTO) 2.3 K/uL (2.5-16.5); LYMPHOCYTES % (AUTO) 32.6 % (20.5-51.1); MEAN CORPUSCULAR HEMOGLOBIN 28 pg (27-31); MEAN CORPUSCULAR HGB CONC 33 g/dL (33-37); MEAN CORPUSCULAR VOLUME 83.9 fL (80-94); MONOCYTES # (AUTO) 0.5 K/uL (0.8-1.0); MONOCYTES % (AUTO) 7.8 % (1.7-9.3); NEUTROPHILS % (AUTO) 57.8 % (42.2-75.2); PLATELET COUNT (AUTO) 205 K/uL (140-450); RED BLOOD CELL COUNT(AUTO) 4.84 MIL/uL (4.20-5.40); RED CELL DISTRIBUTION WIDTH 14.1 % (11.6-13.7)
[2020-07-31 15:46] LABS: PROTHROMBIN TIME 9.7 secs (10.8-13.4)
[2020-07-31 15:48] LABS: ALBUMIN 3.2 g/dL (3.4-5.0); ANION GAP 11.7 (8-16); CARBON DIOXIDE 28.8 mmol/L (21-32); CREATININE 1.1 mg/dL (0.6-1.3); POTASSIUM 3.5 mmol/L (3.5-5.1); TOTAL BILIRUBIN 0.3 mg/dL (0.0-1.0)
[2020-07-31 16:38] LABS: APPEARANCE,URINE CLEAR (CLEAR); BILIRUBIN,URINE NEGATIVE (NEGATIVE); BLOOD, URINE NEGATIVE (NEGATIVE); COLOR,URINE YELLOW (YELLOW); LEUKOCYTE ESTERASE ,URINE NEGATIVE (NEGATIVE); NITRITE, URINE NEGATIVE (NEGATIVE); UGLUCOSE 3+ (NEGATIVE)
[2020-07-31] MEDS ORDERED: METOCLOPRAMIDE 10 MG/2 ML INJ VIAL IVP ONE (17:40)
[2020-07-31] MEDS ORDERED: ACETAMINOPHEN EXTRA STRENGTH 500 MG TAB PO ONE (17:40)
[2020-07-31] MEDS ORDERED: METR500T1 PO (18:04)
[2020-07-31] MEDS ORDERED: METF-938 PO (18:04)
[2020-07-31] MEDS ORDERED: CIPR500T4 PO (18:04)
[2020-07-31] MEDS ORDERED: AMLO-271 PO (18:04)
[2020-07-31] MEDS ORDERED: ALBU0.0912 INH (18:04)
[2020-07-31 18:26] VITALS: BP 176/100
== END 2020-07-31 18:27 | disposition home or self-care (01) ==
LOC: MED 14:36
DX: R19.7 Diarrhea, unspecified (principal); R10.32 Left lower quadrant pain; R50.9 Fever, unspecified; E11.9 Type 2 diabetes mellitus without complications; J45.909 Unspecified asthma, uncomplicated; E03.9 Hypothyroidism, unspecified; Z20.822 Contact with and (suspected) exposure to COVID-19
CPT/HCPCS: 36415; 74177; 80053; 81003; 82803; 83690; 84703; 85025; 85610; 85730; 86886; 86900; 86901; 96361; 96374; 99285; J2765; J7030; Q9967; U0003

== ENCOUNTER 2020-08-15 11:17 | Emergency (ER) | payer MEDICAID ==
[~2020-08-15] VITALS: Ht 162.6 cm; Wt 104.8 kg
[~2020-08-15 11:17] MED LIST changes: +ALBU0.0912 INH; +AMLO-271 PO; +CIPR500T4 PO; +METF-938 PO; +METR500T1 PO
--- NOTE | 2020-08-15 11:35 | NUR ---
Pt taken to ER bed 9.
--- NOTE | 2020-08-15 11:38 | NUR ---
50 Y/O FEMALE C/O BLOODY STOOL, HEADACHE X 1 MONTH. BP 174/111 AT THIS TIME. PT STATES SHE HAS BEEN FEELING FATIGUED LATELY. DENIES N/V, DENIES FEVER/CHILLS. PMH: ASTHMA, HTN, DM NKA
--- NOTE | 2020-08-15 12:10 | NUR ---
Patient discharged with v/s stable. Written and verbal after care instructions given and explained. Patient verbalized understanding. Ambulatory with steady gait. All questions addressed prior to discharge. Advised to follow up with PMD.
== END 2020-08-15 12:07 | disposition home or self-care (01) ==
LOC: MED 11:17
DX: K62.5 Hemorrhage of anus and rectum (principal); J45.909 Unspecified asthma, uncomplicated; E11.9 Type 2 diabetes mellitus without complications; I10 Essential (primary) hypertension; E05.90 Thyrotoxicosis, unspecified without thyrotoxic crisis or storm; Z79.84 Long term (current) use of oral hypoglycemic drugs; Z79.899 Other long term (current) drug therapy
CPT/HCPCS: 99281

== ENCOUNTER 2021-01-26 12:47 | Emergency (ER) | payer MEDICAID ==
[~2021-01-26] VITALS: Ht 160 cm; Wt 117.9 kg
[2021-01-26 13:01] VITALS: BP 216/91
--- NOTE | 2021-01-26 13:20 | NUR ---
PT MOVED TO BED 2
[2021-01-26] MEDS ORDERED: MECL-303 PO (13:33)
[2021-01-26] MEDS ORDERED: IBUP-2213 PO (13:33)
[2021-01-26] MEDS ORDERED: ONDA8TAB87 PO (13:33)
--- NOTE | 2021-01-26 13:37 | NUR ---
50yo f c/o generalized weakness, n/v/d since last night. pt showed symptoms a few hours after eating [employer]. denies fever, cough, runny nose. no meds taken. Pt is complaining of LEAL currently since 3 am pmh: dm, htn meds: none nka
[2021-01-26] MEDS: MECLIZINE 25 MG TAB PO ONE (13:44)
[2021-01-26] MEDS: ONDANSETRON 4 MG ODT PO ONE (13:44)
[2021-01-26] MEDS: KETOROLAC 60 MG/2 ML VIAL IM ONE (13:44)
[2021-01-26] MEDS: NACL 0.9% 1,000 ML IV ONE (14:49)
[2021-01-26] MEDS: diazePAM 5 MG TAB PO ONE (14:49)
[2021-01-26] MEDS ORDERED: DIAZ5TAB7 PO (15:00)
--- NOTE | 2021-01-26 15:09 | NUR ---
pt currently bedside with eyes closed and on her side. vital signs currently stable. pt still on alarm security or surveillance monitor. pt stated she is starting to feel better. bed in lowest position with siderail x1 up. will continue to monitor
[2021-01-26 15:40] VITALS: BP 161/86
--- NOTE | 2021-01-26 15:40 | NUR ---
Patient discharged with v/s stable. Written and verbal after care instructions given and explained. Patient alert, oriented and verbalized understanding of instructions. Ambulatory with steady gait. All questions addressed prior to discharge. ID band removed. Patient advised to follow up with PMD. Rx of valium, ibuprofen, and zofran given. Patient educated on indication of medication including possible reaction and side effects. Opportunity to ask questions provided and answered.
== END 2021-01-26 15:40 | disposition home or self-care (01) ==
LOC: MED 12:47
DX: R42 Dizziness and giddiness (principal); R51.9 Headache, unspecified; R11.2 Nausea with vomiting, unspecified; J45.909 Unspecified asthma, uncomplicated; E11.9 Type 2 diabetes mellitus without complications; I10 Essential (primary) hypertension; E07.9 Disorder of thyroid, unspecified
CPT/HCPCS: 96360; 96372; 99284; J1885; J7030; J8597; Q0162

== ENCOUNTER 2021-08-31 12:56 | Emergency (ER) | payer MEDICAID ==
[~2021-08-31] VITALS: Ht 160 cm; Wt 99.8 kg
[~2021-08-31 12:56] MED LIST changes: +DIAZ5TAB8 PO; +IBUP-2213 PO; +ONDA8TAB87 PO
[2021-08-31 13:09] VITALS: BP 173/84
[2021-08-31] MEDS ORDERED: ALBUTEROL SULFATE/IPRATROPIU 3 ML SOL IH ONE (13:10)
[2021-08-31] MEDS ORDERED: predniSONE 20 MG TAB PO ONE (13:10)
[2021-08-31] MEDS ORDERED: ALBUTEROL 0.083% 2.5 MG/3 ML NEBU INH ONE ×2 (13:10→14:00)
--- NOTE | 2021-08-31 13:34 | NUR ---
51/F PRESENTS TO ED WITH C/O SOB DUE TO ASTHMA X1 WEEK, STATES SHE DOES NOT HAVE HER OWN INHALER AT HOME TO USE. PATIENT STATES SYMPTOMS WORSEN IN THE EVENING. PATIENT DENIES CP, N/V/D, FEVERS OR CHILLS. 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
--- NOTE | 2021-08-31 13:44 | NUR ---
JUSTINA Nj at bedside evaluating patient.
[2021-08-31] MEDS ORDERED: IBUP-2213 PO (13:46)
[2021-08-31] MEDS ORDERED: ALBU0.0912 IH (13:46)
[2021-08-31] MEDS ORDERED: PRED20TA5 PO (13:46)
[2021-08-31 14:19] VITALS: BP 167/74
--- NOTE | 2021-08-31 14:50 | NUR ---
X-ray at bedside.
--- NOTE | 2021-08-31 14:55 | NUR ---
JOSELIN specimen collected and walked to lab. Handed to CPT. Desi
--- NOTE | 2021-08-31 15:40 | NUR ---
JUSTINA Nj at bedside re-evaluating patient.
[2021-08-31] MEDS ORDERED: [UNRECOGNIZED DRUG - CODE] MC (15:43)
[2021-08-31] MEDS ORDERED: PRON INH (15:43)
--- NOTE | 2021-08-31 15:58 | NUR ---
Patient discharged with v/s stable. Written and verbal after care instructions given. Patient alert, oriented and verbalized understanding of instructions. Ambulatory with steady gait. All questions addressed prior to discharge. ID band removed. Patient advised to follow up with PMD. Rx of Albuterol Sulfate, Ibuprofen, Deltasone and Nebulizer given. Opportunity to ask questions provided and answered.
--- NOTE | 2021-08-31 15:59 | NUR ---
The patient's care was reviewed and supervised by Tiki Verdugo RN.
== END 2021-08-31 15:58 | disposition home or self-care (01) ==
LOC: MED 12:56
DX: J45.909 Unspecified asthma, uncomplicated (principal); Z20.822 Contact with and (suspected) exposure to COVID-19; E11.9 Type 2 diabetes mellitus without complications; I10 Essential (primary) hypertension; E07.9 Disorder of thyroid, unspecified; Z79.84 Long term (current) use of oral hypoglycemic drugs; Z79.899 Other long term (current) drug therapy
CPT/HCPCS: 71045; 87426; 94640; 94760; 99284; J7512; J7613

== ENCOUNTER 2021-09-06 12:52 | Emergency (ER) | payer MEDICAID ==
[~2021-09-06] VITALS: Ht 160 cm; Wt 101.2 kg
[~2021-09-06 12:52] MED LIST changes: +PRED20TA5 PO; +PRON INH; +[UNRECOGNIZED DRUG - CODE] MC
[2021-09-06 13:21] VITALS: BP 172/104
[2021-09-06] MEDS ORDERED: ALBUTEROL SULFATE/IPRATROPIU 3 ML SOL IH ONE (13:50)
--- NOTE | 2021-09-06 13:55 | NUR ---
Patient ambulated from chair to bed 09.
--- NOTE | 2021-09-06 14:05 | NUR ---
RT at bedside for breathing treatment
--- NOTE | 2021-09-06 14:05 | NUR ---
51/F BIB SELF WITH C/O CONGESTION AND BODY ACHES, COUGH, SOB X 2 WEEKS. PATIENT A&OX4, AMBULATORY, REPORTS TAKING OTC MEDICATION WITH NO RELIEF. STATES SHE HAS PHLEGM BUILD UP AND HAS SOB DURING THE NIGHTS AND HAS TROUBLE EATING D/T SOB. PT STATES HISTORY OF ASTHMA AND SYMPTOMS FEEL SIMILAR. PATIENT STATES ALBUTEROL PRIOR TO ARRIVAL WITHOUT RELIEF TO SYMPTOMS. DENIES FEVER, CHILLS, ABDOMINAL PAIN, DIZZINESS. PT PLACED ONTO CHILD SUPPORT SPECIALIST. SPO2 96% ON ROOM AIR. LUNG SOUNDS BILATERAL WHEEZES. BED LOCKED IN LOWEST POSITION, SIDE RAILS X 2. MEDHX: ASTHMA, THYROID, VERTIGO, HTN ALLERGIES: NKA
--- NOTE | 2021-09-06 14:10 | NUR ---
Lab at bedside
--- NOTE | 2021-09-06 14:31 | NUR ---
Patient to RAD by wheelchair.
--- NOTE | 2021-09-06 14:36 | NUR ---
Patient returned to bed 09 by wheelchair, placed back onto alarm security or surveillance monitor.
[2021-09-06] MEDS ORDERED: PRED20TA5 PO (14:58)
[2021-09-06] MEDS ORDERED: ALBU0.0912 INH (14:58)
[2021-09-06 15:10] VITALS: BP 174/90
--- NOTE | 2021-09-06 15:12 | NUR ---
Patient discharged with v/s stable. Written and verbal after care instructions given and explained for Asthma Attack. Work note provided. Patient alert, oriented and verbalized understanding of instructions. Ambulatory with steady gait. All questions addressed prior to discharge. ID band removed. Patient advised to follow up with PMD. Rx of Albuterol Sulfate, Prednisone given. Patient educated on indication of medication including possible reaction and side effects. Opportunity to ask questions provided and answered.
== END 2021-09-06 15:12 | disposition home or self-care (01) ==
LOC: MED 12:52
DX: J45.901 Unspecified asthma with (acute) exacerbation (principal); J40 Bronchitis, not specified as acute or chronic; E11.9 Type 2 diabetes mellitus without complications; I10 Essential (primary) hypertension; E07.9 Disorder of thyroid, unspecified; Z79.899 Other long term (current) drug therapy; Z79.84 Long term (current) use of oral hypoglycemic drugs
CPT/HCPCS: 71046; 94640; 99283

== ENCOUNTER 2021-12-12 15:57 | Emergency (ER) | payer MEDICAID ==
[~2021-12-12] VITALS: Ht 165.1 cm; Wt 102.1 kg
[~2021-12-12 15:57] MED LIST changes: +METF-346 PO; -METF500T PO
[2021-12-12 16:19] VITALS: BP 187/125
[2021-12-12] MEDS ORDERED: ALBUTEROL SULFATE/IPRATROPIU 3 ML SOL IH ONE (17:15)
--- NOTE | 2021-12-12 17:15 | NUR ---
TAKEN TO CHAIR A
--- NOTE | 2021-12-12 17:20 | NUR ---
51 Y/O F PRESENTS TO ED WITH C/O ASTHMA EXACERBATION; INCREASED WHEEZING AND DRY COUGH x2 WEEKS. PT REPORTS RUNNING OUT OF HER ALBUTEROL INHALER/NEBULIZER. +DRY COUGH WITH EXPIRATORY WHEEZING. MEDHX- HTN, ASHTMA NKA
--- NOTE | 2021-12-12 17:23 | NUR ---
Respiratory Therapist at bedside for respiratory intervention.
[2021-12-12] MEDS ORDERED: PRON INH (17:40)
[2021-12-12] MEDS ORDERED: AZIT250T4 PO (17:40)
[2021-12-12] MEDS ORDERED: PRED20TA5 PO (17:40)
[2021-12-12] MEDS ORDERED: ALBU0.0912 IH (17:40)
[2021-12-12 17:44] VITALS: BP 145/75
--- NOTE | 2021-12-12 17:44 | NUR ---
Patient discharged with v/s stable. Written and verbal after care instructions given and explained. Patient alert, oriented and verbalized understanding of instructions. Ambulatory with steady gait. All questions addressed prior to discharge. ID band removed. Patient advised to follow up with PMD. Rx of PROVENTIL HFA, ZITHROMAX, DELTASONE, PROVENTIL 0.083 given. Patient educated on indication of medication including possible reaction and side effects. Opportunity to ask questions provided and answered.
== END 2021-12-12 17:44 | disposition home or self-care (01) ==
LOC: MED 15:57
DX: J45.901 Unspecified asthma with (acute) exacerbation (principal); I10 Essential (primary) hypertension; E03.9 Hypothyroidism, unspecified; E11.9 Type 2 diabetes mellitus without complications; Z79.4 Long term (current) use of insulin; Z79.899 Other long term (current) drug therapy
CPT/HCPCS: 94640; 99283

== ENCOUNTER 2023-12-07 19:35 | Inpatient (IN) | payer MEDICAID ==
[~2023-12-07] VITALS: Ht 157.5 cm; Wt 96.6 kg
[~2023-12-07 19:35] MED LIST changes: +AZIT250T4 PO; +MONT-72 PO; -MONT10TA35 PO
[2023-12-07 19:43] VITALS: BP 180/104; PULSE 80; RESP 20; TEMP 99.2; O2SAT 92
[2023-12-07] MEDS ORDERED: NACL 0.9% 1,000 ML IV SCH ×2 (20:25→22:35)
[2023-12-07 20:31] LABS: BASOPHILS # (AUTO) 0.1 K/uL (0.00-0.22); BASOPHILS % (AUTO) 0.6 % (0.0-2.0); EOSINOPHILS # (AUTO) 0.1 K/uL (0-0.4); EOSINOPHILS % (AUTO) 1.1 % (0.0-4.0); HEMATOCRIT 42.7 % (36-48); HEMOGLOBIN 13.9 g/dL (12.0-16.0); LYMPHOCYTES # (AUTO) 2.5 K/uL (2.5-16.5); LYMPHOCYTES % (AUTO) 24.1 % (20.5-51.1); MEAN CORPUSCULAR HEMOGLOBIN 27 pg (27-31); MEAN CORPUSCULAR HGB CONC 33 g/dL (33-37); MONOCYTES # (AUTO) 0.8 K/uL (0.8-1.0); MONOCYTES % (AUTO) 7.7 % (1.7-9.3); NEUTROPHILS # (AUTO) 6.9 K/uL (1.8-7.7); NEUTROPHILS % (AUTO) 66.5 % (42.2-75.2); PLATELET COUNT (AUTO) 234 K/uL (140-450); RED BLOOD CELL COUNT(AUTO) 5.08 MIL/uL (4.20-5.40); WHITE BLOOD COUNT (AUTO) 10.3 K/uL (4.8-10.8)
[2023-12-07 21:05] LABS: INR 0.9 (0.8-1.2); PARTIAL THROMBOPLASTIN TIME 28.1 secs (22-35.6); PROTHROMBIN TIME 9.5 secs (10.8-13.4)
[2023-12-07 21:09] LABS: LACTIC ACID 3.1 mmol/L (0.4-2.0)
[2023-12-07 21:24] LABS: ANION GAP 14.7 (8-16); CALCIUM 9.1 mg/dL (8.5-10.1); CARBON DIOXIDE 26.8 mmol/L (21-32); CREATININE 1.1 mg/dL (0.6-1.3); POTASSIUM 3.5 mmol/L (3.5-5.1)
[2023-12-07 21:26] LABS: ALANINE AMINOTRANSFERASE 40 U/L (12-78); ALBUMIN 3.3 g/dL (3.4-5.0); ALKALINE PHOSPHATASE 95 U/L (50-136); ASPARTATE AMINOTRANSFERASE 25 U/L (15-37); BILIRUBIN,DIRECT 0.1 mg/dL (0.0-0.3); CREATINE KINASE, TOTAL 92 U/L (26-192); TOTAL BILIRUBIN 0.3 mg/dL (0.0-1.0); TOTAL PROTEIN, SERUM 7.4 g/dL (6.4-8.2)
[2023-12-07] MEDS: NACL 0.9% 2,000 ML IV ONE (21:42)
[2023-12-07] MEDS: IPRATROPIUM 0.02% 0.5 MG/2.5 ML NEBU INH ONE (21:44)
[2023-12-07] MEDS: ALBUTEROL 0.083% 2.5 MG/3 ML NEBU INH ONE (21:44)
[2023-12-07] MEDS ORDERED: CEFEPIME 2,000 MG VIAL IV ONE (21:45)
[2023-12-07 21:46] VITALS: PULSE 71; RESP 26; O2SAT 94
[2023-12-07] MEDS: CEFEPIME 2,000 MG in DEXTROSE 5% 100 ML IV ONE (21:57)
[2023-12-07] MEDS: INSULIN REGULAR, HUMAN 100 UNIT/ML VIAL IV ONE (22:05)
[2023-12-07] MEDS ORDERED: MAG SULF 2000 MG/WATER PREMIX 50 ML IV PRN ×2 (22:35→22:45)
[2023-12-07] MEDS ORDERED: MAGNESIUM OXIDE 400 MG TAB PO PRN (22:35)
[2023-12-07] MEDS ORDERED: POTASSIUM CHLORIDE 10 MEQ TABER PO PRN (22:35)
[2023-12-07] MEDS ORDERED: ACETAMINOPHEN 325 MG TAB PO PRN (22:35)
[2023-12-07] MEDS ORDERED: HYDROcodone/APAP 5/325 MG 1 TAB TAB PO PRN (22:35)
[2023-12-07] MEDS ORDERED: MORPHINE SULFATE 4 MG/ML SYR IVP PRN ×2 (22:35→22:45)
[2023-12-07] MEDS ORDERED: ONDANSETRON 4 MG/2 ML VIAL IVP PRN ×2 (22:35→22:45)
[2023-12-07] MEDS ORDERED: INSULIN LISPRO SLIDING SCALE 100 UNITS/ML VIAL SUBQ PRN (22:40)
[2023-12-07] MEDS ORDERED: DEXTROSE 50% 50 ML SYR IVP PRN (22:40)
[2023-12-07] MEDS ORDERED: NIFEdipine 30 MG TABER PO SCH (22:40)
[2023-12-07] MEDS ORDERED: LOSARTAN 50 MG TAB PO SCH (22:45)
[2023-12-07] MEDS ORDERED: VANCOMYCIN 1,000 MG VIAL ONE (22:45)
[2023-12-07] MEDS: NACL 0.9% 1,000 ML IV SCH (22:45)
[2023-12-07] MEDS: methylPREDNISolone SS 125 MG/2 ML VIAL IVP ONE (23:18)
[2023-12-07] MEDS: VANCOMYCIN 1,000 MG in DEXTROSE 5% 250 ML IV ONE (23:18)
[2023-12-08] VITALS (13 sets, daily range): BP systolic 128–189; BP diastolic 55–104; PULSE 79–116; RESP 18–20; TEMP 96.8–98.5; O2SAT 90–100
[2023-12-08] MEDS: INSULIN LISPRO SLIDING SCALE 100 UNITS/ML VIAL SUBQ PRN (00:48)
[2023-12-08] MEDS: INSULIN LANTUS 100 UNITS/ML 10 ML VIAL SUBQ SCH (00:48)
[2023-12-08] MEDS: AZITHROMYCIN 500 MG INJ VIAL IV ONE (01:28)
[2023-12-08] MEDS: AZITHROMYCIN 500 MG in DEXTROSE 5% 250 ML IV SCH (01:42)
[2023-12-08] MEDS: hydrALAZINE 20 MG/ML VIAL IVP PRN (03:19)
[2023-12-08] MEDS: BLOOD GLUCOSE MONITORING 1 DEV DEV FS SCH (05:02)
[2023-12-08 05:48] LABS: BASOPHILS % (AUTO) 0.2 % (0.0-2.0); HEMATOCRIT 41.9 % (36-48); LYMPHOCYTES # (AUTO) 0.8 K/uL (2.5-16.5); LYMPHOCYTES % (AUTO) 7.1 % (20.5-51.1); MEAN CORPUSCULAR HEMOGLOBIN 28 pg (27-31); MEAN CORPUSCULAR HGB CONC 33 g/dL (33-37); MEAN CORPUSCULAR VOLUME 83.6 fL (80-94); MONOCYTES # (AUTO) 0.1 K/uL (0.8-1.0); MONOCYTES % (AUTO) 1.1 % (1.7-9.3); NEUTROPHILS # (AUTO) 9.7 K/uL (1.8-7.7); NEUTROPHILS % (AUTO) 91.6 % (42.2-75.2); PLATELET COUNT (AUTO) 237 K/uL (140-450); RED CELL DISTRIBUTION WIDTH 13.8 % (11.6-13.7); WHITE BLOOD COUNT (AUTO) 10.6 K/uL (4.8-10.8)
[2023-12-08 06:05] LABS: ANION GAP 14.9 (8-16); CALCIUM 8.7 mg/dL (8.5-10.1); CARBON DIOXIDE 25.5 mmol/L (21-32); CREATININE 0.8 mg/dL (0.6-1.3); POTASSIUM 3.4 mmol/L (3.5-5.1)
[2023-12-08 06:09] LABS: APPEARANCE,URINE CLEAR (CLEAR); BILIRUBIN,URINE NEGATIVE (NEGATIVE); BLOOD, URINE NEGATIVE (NEGATIVE); COLOR,URINE YELLOW (YELLOW); LEUKOCYTE ESTERASE ,URINE NEGATIVE (NEGATIVE); NITRITE, URINE NEGATIVE (NEGATIVE); PROTEIN,URINE NEGATIVE (NEGATIVE); UGLUCOSE 3+ (NEGATIVE); UROBILINOGEN,URINE 0.2 EU/dL (0.2 - 1)
[2023-12-08 06:21] LABS: LACTIC ACID 2.2 mmol/L (0.4-2.0)
[2023-12-08] MEDS: POTASSIUM CHLORIDE 10 MEQ TABER PO PRN (06:54)
[2023-12-08] MEDS ORDERED: methylPREDNISolone SS 125 MG/2 ML VIAL IVP SCH (09:00)
[2023-12-08] MEDS: methylPREDNISolone SS 125 MG/2 ML VIAL IVP SCH (09:06)
[2023-12-08] MEDS: DOCUSATE SODIUM 100 MG GELCAP PO SCH (09:09)
[2023-12-08] MEDS: LOSARTAN 50 MG TAB PO SCH (09:09)
[2023-12-08] MEDS: NIFEdipine 30 MG TABER PO SCH (09:09)
[2023-12-08] MEDS: MAGNESIUM OXIDE 400 MG TAB PO PRN (10:21)
[2023-12-08] MEDS: FUROSEMIDE 40 MG/4 ML VIAL IVP SCH (10:30)
[2023-12-08] MEDS ORDERED: POTASSIUM CHLORIDE 10 MEQ TABER PO ONE (11:25)
[2023-12-08] MEDS ORDERED: MAG SULF 2000 MG/WATER PREMIX 50 ML IV SCH (11:25)
[2023-12-08] MEDS ORDERED: hydrALAZINE 25 MG TAB PO PRN (12:25)
[2023-12-08] MEDS: hydrALAZINE 25 MG TAB PO PRN (12:45)
[2023-12-08] MEDS ORDERED: hydrALAZINE 20 MG/ML VIAL IVP PRN (14:30)
[2023-12-08] MEDS: metFORMIN 500 MG TAB PO SCH (16:38)
[2023-12-08] MEDS: ECOTRIN 81 MG TABEC PO SCH (18:48)
[2023-12-08] MEDS: ALBUTEROL SULFATE/IPRATROPIU 3 ML SOL IH SCH (19:30)
[2023-12-08] MEDS: BUDESONIDE 0.5 MG/2 ML NEBU INH SCH (19:31)
[2023-12-08] MEDS: FUROSEMIDE 20 MG/2 ML VIAL IVP SCH (20:43)
[2023-12-08] MEDS: FAMOTIDINE 20 MG TAB PO SCH (21:44)
[2023-12-09] VITALS (11 sets, daily range): BP systolic 111–156; BP diastolic 57–85; PULSE 67–94; RESP 14–19; TEMP 96.5–97.6; O2SAT 93–100
[2023-12-09 06:09] LABS: BASOPHILS % (AUTO) 0.2 % (0.0-2.0); HEMATOCRIT 44.6 % (36-48); HEMOGLOBIN 14.5 g/dL (12.0-16.0); LYMPHOCYTES # (AUTO) 2.3 K/uL (2.5-16.5); LYMPHOCYTES % (AUTO) 13.6 % (20.5-51.1); MEAN CORPUSCULAR HEMOGLOBIN 27 pg (27-31); MEAN CORPUSCULAR HGB CONC 32 g/dL (33-37); MEAN CORPUSCULAR VOLUME 84.5 fL (80-94); MONOCYTES # (AUTO) 1.3 K/uL (0.8-1.0); MONOCYTES % (AUTO) 7.9 % (1.7-9.3); NEUTROPHILS # (AUTO) 13.2 K/uL (1.8-7.7); NEUTROPHILS % (AUTO) 78.3 % (42.2-75.2); PLATELET COUNT (AUTO) 250 K/uL (140-450); RED BLOOD CELL COUNT(AUTO) 5.28 MIL/uL (4.20-5.40); RED CELL DISTRIBUTION WIDTH 14.1 % (11.6-13.7); WHITE BLOOD COUNT (AUTO) 16.8 K/uL (4.8-10.8)
[2023-12-09 06:32] LABS: ANION GAP 14.9 (8-16); CALCIUM 9.6 mg/dL (8.5-10.1); CARBON DIOXIDE 26.2 mmol/L (21-32); CREATININE 0.9 mg/dL (0.6-1.3); POTASSIUM 3.1 mmol/L (3.5-5.1)
[2023-12-09] MEDS: MONTELUKAST SODIUM 10 MG TAB PO SCH (09:07)
[2023-12-09] MEDS ORDERED: PROMETH/CODEINE 6.25-10MG/5ML 5 ML UDC PO PRN (15:35)
[2023-12-10] VITALS (12 sets, daily range): BP systolic 115–149; BP diastolic 55–97; PULSE 66–94; RESP 16–19; TEMP 96.8–98.4; O2SAT 90–100
[2023-12-10 06:07] LABS: BASOPHILS # (AUTO) 0.1 K/uL (0.00-0.22); BASOPHILS % (AUTO) 0.6 % (0.0-2.0); EOSINOPHILS # (AUTO) 0.1 K/uL (0-0.4); EOSINOPHILS % (AUTO) 1.3 % (0.0-4.0); HEMATOCRIT 45.5 % (36-48); HEMOGLOBIN 14.9 g/dL (12.0-16.0); LYMPHOCYTES # (AUTO) 3.6 K/uL (2.5-16.5); LYMPHOCYTES % (AUTO) 33.1 % (20.5-51.1); MEAN CORPUSCULAR HEMOGLOBIN 28 pg (27-31); MEAN CORPUSCULAR HGB CONC 33 g/dL (33-37); MONOCYTES # (AUTO) 0.9 K/uL (0.8-1.0); MONOCYTES % (AUTO) 7.9 % (1.7-9.3); NEUTROPHILS # (AUTO) 6.2 K/uL (1.8-7.7); NEUTROPHILS % (AUTO) 57.1 % (42.2-75.2); PLATELET COUNT (AUTO) 239 K/uL (140-450); RED BLOOD CELL COUNT(AUTO) 5.42 MIL/uL (4.20-5.40); RED CELL DISTRIBUTION WIDTH 14.4 % (11.6-13.7); WHITE BLOOD COUNT (AUTO) 10.9 K/uL (4.8-10.8)
[2023-12-10 06:26] LABS: ANION GAP 10.2 (8-16); CALCIUM 9.7 mg/dL (8.5-10.1); CARBON DIOXIDE 30.9 mmol/L (21-32); CREATININE 0.9 mg/dL (0.6-1.3); POTASSIUM 3.1 mmol/L (3.5-5.1)
[2023-12-10] MEDS: ALBUTEROL 0.083% 2.5 MG/3 ML NEBU INH ONE (20:22)
[2023-12-10] MEDS: CRUSHER, PILL MC ONE (21:45)
[2023-12-11] VITALS (13 sets, daily range): BP systolic 100–143; BP diastolic 56–95; PULSE 71–90; RESP 16–23; TEMP 96.3–97.8; O2SAT 94–98
[2023-12-11 05:37] LABS: BASOPHILS % (AUTO) 0.5 % (0.0-2.0); EOSINOPHILS # (AUTO) 0.1 K/uL (0-0.4); EOSINOPHILS % (AUTO) 1.1 % (0.0-4.0); HEMATOCRIT 42.3 % (36-48); HEMOGLOBIN 13.9 g/dL (12.0-16.0); LYMPHOCYTES % (AUTO) 30.5 % (20.5-51.1); MEAN CORPUSCULAR HEMOGLOBIN 28 pg (27-31); MEAN CORPUSCULAR HGB CONC 33 g/dL (33-37); MEAN CORPUSCULAR VOLUME 83.9 fL (80-94); MONOCYTES # (AUTO) 0.9 K/uL (0.8-1.0); NEUTROPHILS # (AUTO) 5.8 K/uL (1.8-7.7); NEUTROPHILS % (AUTO) 58.9 % (42.2-75.2); PLATELET COUNT (AUTO) 232 K/uL (140-450); RED BLOOD CELL COUNT(AUTO) 5.04 MIL/uL (4.20-5.40); RED CELL DISTRIBUTION WIDTH 14.1 % (11.6-13.7); WHITE BLOOD COUNT (AUTO) 9.8 K/uL (4.8-10.8)
[2023-12-11 06:04] LABS: ANION GAP 11.2 (8-16); CALCIUM 9.5 mg/dL (8.5-10.1); CARBON DIOXIDE 30.8 mmol/L (21-32); CREATININE 0.7 mg/dL (0.6-1.3)
[2023-12-11] MEDS ORDERED: LOSA-270 PO (13:20)
[2023-12-11] MEDS ORDERED: CLOP-68 PO (13:20)
[2023-12-11] MEDS ORDERED: LANTUS SUBQ (13:20)
[2023-12-11] MEDS ORDERED: ASPI-1856 PO (13:20)
[2023-12-11] MEDS: CLOPIDOGREL 75 MG TAB PO SCH (18:25)
[2023-12-12] VITALS (13 sets, daily range): BP systolic 132–155; BP diastolic 61–84; PULSE 72–83; RESP 16–22; TEMP 97.2–98.1; O2SAT 92–98
[2023-12-12 06:08] LABS: CALCIUM 9.6 mg/dL (8.5-10.1); CARBON DIOXIDE 33.2 mmol/L (21-32); CREATININE 0.9 mg/dL (0.6-1.3); POTASSIUM 3.2 mmol/L (3.5-5.1)
[2023-12-12 06:51] LABS: BASOPHILS % (AUTO) 0.3 % (0.0-2.0); EOSINOPHILS # (AUTO) 0.2 K/uL (0-0.4); EOSINOPHILS % (AUTO) 1.3 % (0.0-4.0); HEMATOCRIT 42.2 % (36-48); HEMOGLOBIN 13.7 g/dL (12.0-16.0); LYMPHOCYTES % (AUTO) 24.9 % (20.5-51.1); MEAN CORPUSCULAR HEMOGLOBIN 28 pg (27-31); MEAN CORPUSCULAR HGB CONC 33 g/dL (33-37); MEAN CORPUSCULAR VOLUME 84.6 fL (80-94); MONOCYTES # (AUTO) 0.8 K/uL (0.8-1.0); MONOCYTES % (AUTO) 6.6 % (1.7-9.3); NEUTROPHILS % (AUTO) 66.9 % (42.2-75.2); PLATELET COUNT (AUTO) 236 K/uL (140-450); RED BLOOD CELL COUNT(AUTO) 4.99 MIL/uL (4.20-5.40); RED CELL DISTRIBUTION WIDTH 13.8 % (11.6-13.7)
[2023-12-12] MEDS: MAG SULF 2000 MG/WATER PREMIX 50 ML IV SCH (11:39)
[2023-12-12] MEDS ORDERED: methylPREDNISolone SS 40 MG/ML VIAL IVP SCH (12:00)
[2023-12-13] VITALS (14 sets, daily range): BP systolic 123–146; BP diastolic 63–88; PULSE 68–86; RESP 16–20; TEMP 97.4–98.7; O2SAT 93–98
[2023-12-14] VITALS (10 sets, daily range): BP systolic 105–146; BP diastolic 67–79; PULSE 67–83; RESP 16–20; TEMP 96.4–97.5; O2SAT 90–96
[2023-12-14] MEDS ORDERED: CLOP-68 PO (11:19)
[2023-12-15 01:43] VITALS: O2SAT 90
[2023-12-15 04:00] VITALS: BP 136/79; PULSE 73; RESP 18; TEMP 96.3; O2SAT 95
[2023-12-15 08:00] VITALS: PULSE 76; RESP 17; O2SAT 93; O2SAT 95
[2023-12-15 16:28] VITALS: BP 128/77; PULSE 81; RESP 17; TEMP 98
== END 2023-12-15 17:10 | disposition home health service (06) | DRG 720 ==
LOC: MED 19:35 → MTU 22:31 → MED 22:36
PROVIDERS: ADMIT Hospitalist; ATTEND Hospitalist
DX: A41.9 Sepsis, unspecified organism (principal); I63.9 Cerebral infarction, unspecified; J96.01 Acute respiratory failure with hypoxia; J15.69 Pneumonia due to other Gram-negative bacteria; E11.00 Type 2 diabetes mellitus with hyperosmolarity without nonketotic hyperglycemic-hyperosmolar coma (NKHHC); E87.1 Hypo-osmolality and hyponatremia; J15.9 Unspecified bacterial pneumonia; J45.901 Unspecified asthma with (acute) exacerbation; J44.0 Chronic obstructive pulmonary disease with (acute) lower respiratory infection; G81.91 Hemiplegia, unspecified affecting right dominant side; R64 Cachexia; I10 Essential (primary) hypertension; E78.5 Hyperlipidemia, unspecified; Z79.899 Other long term (current) drug therapy; Z68.39 Body mass index [BMI] 39.0-39.9, adult
CPT/HCPCS: 36415; 70450; 71045; 80048; 80076; 81003; 82550; 82553; 82948; 83605; 83735; 83880; 84484; 85025; 85610; 85730; 87040; 87070; 87081; 87086; 87205; 89220; 92526; 93005; 94640; 96365; 96367; 96375; 97110; 97112; 97163-GP; 97530; 99291; J0360; J0456; J0692; J1644; J1815; J1940; J2919; J3370; J3475; J7060; J7613; J7626; J7644; Q9967